=== PATIENT | female | born 2000 | race Caucasian/White ===

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

== ENCOUNTER 2019-01-16 12:08 | Emergency (ER) | payer OTHER ==
[~2019-01-16] VITALS: Ht 149.9 cm; Wt 66.7 kg
[2019-01-16 12:29] VITALS: BP 150/68
--- NOTE | 2019-01-16 12:34 | NUR ---
PT PROVIDING URINE SAMPLE AND THEN TO AMBULATE TO [facility], [facility].
--- NOTE | 2019-01-16 12:50 | NUR ---
PATIENT AMBULATED TO BED 12.
--- NOTE | 2019-01-16 13:00 | NUR ---
18 YO F BIB MOTHER WITH CHIEF C/O PAINFUL RT ARMPIT X4 DAYS. REPORTS CONSTANT SHARP PAIN AT 9/10 THAT DOES NOT RADIATE. VISIBLE ABSCESS NOTED. PT DENIES NAUSEA, VOMITING OR FEVER. PENDING MD EVALUATION.
[2019-01-16 13:55] VITALS: BP 106/56
--- NOTE | 2019-01-16 13:56 | NUR ---
Patient discharged with v/s stable. Written and verbal after care instructions given and explained. Patient alert, oriented and verbalized understanding of instructions. Ambulatory with steady gait. All questions addressed prior to discharge. ID band removed. Patient advised to follow up with PMD. Rx of Bactrim DS, Keflex and [place] given. Patient educated on indication of medication including possible reaction and side effects. Opportunity to ask questions provided and answered.
== END 2019-01-16 13:56 | disposition home or self-care (01) ==
LOC: MED 12:08
DX: L02.411 Cutaneous abscess of right axilla (principal); L72.0 Epidermal cyst
CPT/HCPCS: 99283

== ENCOUNTER 2019-03-08 14:36 | Emergency (ER) | payer OTHER ==
[~2019-03-08] VITALS: Ht 149.9 cm; Wt 65.8 kg
[2019-03-08 14:39] VITALS: BP 122/63
--- NOTE | 2019-03-08 14:45 | NUR ---
VSS. WAIT IN LOBBY
--- NOTE | 2019-03-08 15:00 | NUR ---
C/O LUMP RIGHT AXILLA X DAYS.COMPLAINS OF PAIN 07/02. PT LYING ON HER BED AT THIS TIME. MD TO SEE PT. MED HX: HIDRADENITIS SUPPURATIVA
[2019-03-08] MEDS ORDERED: DEXAMETHASONE 10 MG/ML VIAL IM ONE (15:45)
[2019-03-08] MEDS ORDERED: KETOROLAC 60 MG/2 ML VIAL IM ONE (15:45)
[2019-03-08] MEDS ORDERED: CLINDAMYCIN 600 MG/4 ML VIAL IM ONE (15:45)
[2019-03-08 16:55] VITALS: BP 109/69
--- NOTE | 2019-03-08 16:57 | NUR ---
Patient discharged with v/s stable. Written and verbal after care instructions given and explained. Patient alert, oriented and verbalized understanding of instructions. Ambulatory with steady gait. All questions addressed prior to discharge. ID band removed. Patient advised to follow up with PMD. Rx of MOPTRIN,.PREDNISONE AND CLINDAMYCIN given. Patient educated on indication of medication including possible reaction and side effects. Opportunity to ask questions provided and answered.
== END 2019-03-08 16:57 | disposition home or self-care (01) ==
LOC: MED 14:36
DX: L02.411 Cutaneous abscess of right axilla (principal); Z87.2 Personal history of diseases of the skin and subcutaneous tissue
CPT/HCPCS: 96372; 99283; J1100; J1885; J3490

== ENCOUNTER 2019-05-01 14:56 | Emergency (ER) | payer OTHER ==
[~2019-05-01] VITALS: Ht 149.9 cm; Wt 66.7 kg
[2019-05-01 15:07] VITALS: BP 111/65
[2019-05-01] MEDS ORDERED: predniSONE 20 MG TAB PO ONE (15:30)
[2019-05-01] MEDS ORDERED: SULFAMETH/TRIMETH DS 800/160MG 1 TAB PO ONE (15:30)
--- NOTE | 2019-05-01 15:37 | NUR ---
PATIENT TAKEN TO BED 10
--- NOTE | 2019-05-01 15:40 | NUR ---
PT BIB SELF C/O MULTIPLE ITCHY "BUG BITES OR ALERGIC REACTION" TO BLE, AND TO UPPER R ARM X 1HOUR AGO. PT STATES SHE JUST NOTICED THE REDNESS TO HER BLE 1 HOUR AGO AT WORK ([employer]). PT REPORTS TAKING A MEDICATION SIMILAR TO BENADRYL TO HELP RELIEVE ITCHING. PT DENIES SOB, AIRWAY PATENT, LUNG SOUNDS CLEAR. VSS. ER TO SEE PT. HX: NONE RX: NONE
--- NOTE | 2019-05-01 16:00 | NUR ---
Patient discharged with v/s stable. Written and verbal after care instructions given and explained. Patient alert, oriented and verbalized understanding of instructions. Ambulatory with steady gait. All questions addressed prior to discharge. ID band removed. Patient advised to follow up with PMD. Rx of BACTRIUM, PREDNISONE, BENADRYL given. Patient educated on indication of medication including possible reaction and side effects. Opportunity to ask questions provided and answered.
[2019-05-01 16:01] VITALS: BP 114/63
== END 2019-05-01 16:00 | disposition home or self-care (01) ==
LOC: MED 14:56
DX: S80.861A Insect bite (nonvenomous), right lower leg, initial encounter (principal); S80.862A Insect bite (nonvenomous), left lower leg, initial encounter; S40.861A Insect bite (nonvenomous) of right upper arm, initial encounter; L03.115 Cellulitis of right lower limb; L03.116 Cellulitis of left lower limb; L03.113 Cellulitis of right upper limb; W57.XXXA Bitten or stung by nonvenomous insect and other nonvenomous arthropods, initial encounter; Y93.89 Activity, other specified; Y92.89 Other specified places as the place of occurrence of the external cause; Y99.8 Other external cause status
CPT/HCPCS: 99283; J7512

== ENCOUNTER 2021-01-24 21:51 | Emergency (ER) | payer OTHER ==
[~2021-01-24] VITALS: Ht 149.9 cm; Wt 72.6 kg
[2021-01-24 22:11] VITALS: BP 139/70
--- NOTE | 2021-01-24 22:23 | NUR ---
PT AMBULATED TO BED 01
--- NOTE | 2021-01-24 23:00 | NUR ---
20 Y/O FEMALE CAME TO THE ED FOR COVID-19 SYMPTOMS. PT STATED THAT SHE HAD NON PRODUCTIVE COUGH, CHILLS, FEVER. DENIES N/V/D; SKIN IS PINK/WARM/DRY; AAOX4 WITH EVEN AND STEADY GAIT; LUNGS CLEAR BL; HR EVEN AND REGULAR; VSS; PATIENT POSITIONED FOR COMFORT; HOB ELEVATED; BEDRAILS UP X2; BED DOWN. ER MD MADE AWARE OF PT STATUS. PMH: DENIES ALLERGIES: SEASONAL ALLERGIES (POLLEN)
[2021-01-25 00:05] VITALS: BP 139/70
--- NOTE | 2021-01-25 00:23 | NUR ---
FLU AND CHANTALE SWABS WALKED TO LAB, HANDED TO THONG PALACIOS
--- NOTE | 2021-01-25 00:30 | NUR ---
Patient discharged with v/s stable. Written and verbal after care instructions given and explained. Patient verbalized understanding. Ambulatory with steady gait. All questions addressed prior to discharge. Advised to follow up with PMD.
== END 2021-01-25 00:30 | disposition home or self-care (01) ==
LOC: MED 21:51
DX: J06.9 Acute upper respiratory infection, unspecified (principal); Z20.822 Contact with and (suspected) exposure to COVID-19
CPT/HCPCS: 81002; 81025; 87804; 99283

== ENCOUNTER 2022-08-18 15:19 | Emergency (ER) | payer OTHER ==
[~2022-08-18] VITALS: Ht 149.9 cm; Wt 68.0 kg
[2022-08-18 15:37] VITALS: BP 113/64
--- NOTE | 2022-08-18 15:41 | NUR ---
PT AMBULATED TO BED 1 FOR EKG THEN AMBULATED BACK TO [facility]
--- NOTE | 2022-08-18 16:00 | NUR ---
22/F WALKED IN C/O 04/01 SHARP CHEST PAIN ONSET 1300 TODAY AFTER AN ANXIETY ATTACK. PT REPORTS HX ANXIETY. DENIES MED USE. PMH: ANXIETY NKA
[2022-08-18 18:33] VITALS: BP 117/66
== END 2022-08-18 18:33 | disposition home or self-care (01) ==
LOC: MED 15:19
DX: R07.9 Chest pain, unspecified (principal); R06.02 Shortness of breath; R42 Dizziness and giddiness; F41.9 Anxiety disorder, unspecified
CPT/HCPCS: 93005; 99283

== ENCOUNTER 2023-09-22 09:46 | Emergency (ER) | payer OTHER ==
[~2023-09-22] VITALS: Ht 149.9 cm; Wt 68.0 kg
[2023-09-22 09:55] VITALS: BP 130/85; PULSE 116; RESP 18; TEMP 98.9; O2SAT 98
[2023-09-22 11:06] LABS: FLU A ANTIGEN negative (NEGATIVE); FLU B ANTIGEN NEGATIVE (NEGATIVE)
== END 2023-09-22 10:25 | disposition home or self-care (01) ==
LOC: MED 09:46
DX: J06.9 Acute upper respiratory infection, unspecified (principal); Z20.822 Contact with and (suspected) exposure to COVID-19; R59.0 Localized enlarged lymph nodes
CPT/HCPCS: 99283

== ENCOUNTER 2023-10-15 21:08 | Emergency (ER) | payer OTHER ==
[~2023-10-15] VITALS: Ht 149.9 cm; Wt 68.0 kg
[2023-10-15 21:10] VITALS: BP 110/81; PULSE 83; RESP 17; TEMP 98; O2SAT 99
[2023-10-15] MEDS ORDERED: IBUPROFEN 600 MG TAB PO ONE (23:15)
[2023-10-15] MEDS ORDERED: AMOXICILLIN 500 MG CAP PO ONE (23:15)
[2023-10-15] MEDS ORDERED: DEXAMETHASONE 10 MG/ML VIAL PO ONE (23:15)
[2023-10-15] MEDS ORDERED: AMOX500C25 PO (23:27)
[2023-10-15] MEDS ORDERED: BENZ100C6 PO (23:29)
[2023-10-15] MEDS ORDERED: PROM118S5 PO (23:29)
[2023-10-15] MEDS ORDERED: POLY10DR5 OP (23:29)
[2023-10-16 00:59] LABS: FLU A ANTIGEN negative (NEGATIVE); FLU B ANTIGEN NEGATIVE (NEGATIVE)
== END 2023-10-15 23:50 | disposition home or self-care (01) ==
LOC: MED 21:08
DX: H66.92 Otitis media, unspecified, left ear (principal); J06.9 Acute upper respiratory infection, unspecified; H10.9 Unspecified conjunctivitis; Z79.899 Other long term (current) drug therapy; Z79.2 Long term (current) use of antibiotics
CPT/HCPCS: 87081; 87804; 99284; J1100

== ENCOUNTER 2024-05-07 05:45 | Emergency (ER) | payer OTHER ==
[~2024-05-07] VITALS: Ht 149.9 cm; Wt 63.5 kg
[~2024-05-07 05:45] MED LIST: AMOX500C25 PO; BENZ100C6 PO; POLY10DR5 OP; PROM118S5 PO
[2024-05-07 05:48] VITALS: BP 97/62; PULSE 72; RESP 16; TEMP 98.4; O2SAT 100
== END 2024-05-07 06:56 | disposition left against medical advice (07) ==
LOC: MED 05:45
DX: H57.10 Ocular pain, unspecified eye (principal); Z53.21 Procedure and treatment not carried out due to patient leaving prior to being seen by health care provider